=== PATIENT | female | born 1985 | race Two or more races ===

== ENCOUNTER 2019-04-10 14:31 | Emergency (ER) | payer MEDICAID ==
[~2019-04-10] VITALS: Ht 162.6 cm; Wt 61.4 kg
[2019-04-10] MEDS ORDERED: DIPH50CA35 PO (15:12)
[2019-04-10] MEDS ORDERED: ARIP10TA8 PO (15:12)
[2019-04-10] MEDS ORDERED: LORA1TAB3 PO (15:12)
[2019-04-10 16:46] LABS: AMPHET/METH SCREEN,URINE NEGATIVE (NEGATIVE); BARBITURATE SCREEN, URINE NEGATIVE (NEGATIVE); BENZODIAZEPINES SCREEN,URINE NEGATIVE (NEGATIVE); CANNABINOID SCREEN,URINE NEGATIVE (NEGATIVE); COCAINE SCREEN,URINE NEGATIVE (NEGATIVE); METHADONE SCREEN, URINE NEGATIVE (NEGATIVE); OPIATE SCREEN,URINE NEGATIVE (NEGATIVE)
[2019-04-10 16:48] LABS: PHENCYCLIDINE SCREEN,URINE NEGATIVE (NEGATIVE)
[2019-04-10 17:55] VITALS: BP 99/58
== END 2019-04-10 18:25 | disposition home or self-care (01) ==
LOC: EMS 14:33
DX: F20.9 Schizophrenia, unspecified (principal); F22 Delusional disorders; F32.9 Major depressive disorder, single episode, unspecified; F17.210 Nicotine dependence, cigarettes, uncomplicated; Z88.8 Allergy status to other drugs, medicaments and biological substances